=== PATIENT | female | born 1980 | race Two or more races ===

== ENCOUNTER 2020-02-11 19:23 | Emergency (ER) | payer BC, MEDICAID ==
[~2020-02-11] VITALS: Ht 157.5 cm; Wt 54.4 kg
[2020-02-11 19:23] VITALS: BP 123/83
--- NOTE | 2020-02-11 19:35 | NUR ---
BIBS FOR C/O R CLINE INFECTION STARTED W/ A CYST 2 MOS AGO. PT STATED SHE IS TAKING KEFLEX NOT PRESCRIBED BY .
--- NOTE | 2020-02-11 19:36 | NUR ---
DR LANGE AT BED SIDE
--- NOTE | 2020-02-11 20:13 | NUR ---
Patient discharged to home in stable condition. Written and verbal after care instructions given. Patient verbalizes understanding of instruction.
== END 2020-02-11 20:14 | disposition home or self-care (01) ==
LOC: ER 19:30
DX: L03.115 Cellulitis of right lower limb (principal)